=== PATIENT | male | born 1940 | race Caucasian/White ===

== ENCOUNTER 2016-07-22 09:24 | Inpatient (IN) | payer MEDICARE, MEDICAID ==
[~2016-07-22] VITALS: Ht 172.7 cm; Wt 72.6 kg
[2016-07-22] MEDS ORDERED: FURO80TA3 PO (09:56)
[2016-07-22] MEDS ORDERED: ALBUTEROL/IPRATROPIUM 2.5MG/0.5MG, 3 ML ONE (09:56)
[2016-07-22] MEDS ORDERED: [UNRECOGNIZED DRUG - CODE] PO (09:56)
[2016-07-22] MEDS ORDERED: ACET-1757 PO (09:56)
[2016-07-22] MEDS ORDERED: RANI150T4 PO (09:56)
[2016-07-22] MEDS ORDERED: CYAN25009 PO (09:56)
[2016-07-22] MEDS ORDERED: DOCU100C8 PO (09:56)
[2016-07-22] MEDS ORDERED: MULT-6 PO (09:56)
[2016-07-22] MEDS ORDERED: POTA20TA89 PO (09:56)
[2016-07-22] MEDS ORDERED: SODIUM CHLORIDE FLUSH 10ML SYR IVF ONE (10:00)
[2016-07-22] MEDS ORDERED: LIDOCAINE 1%, 20ML ONE (10:11)
[2016-07-22] MEDS ORDERED: SODIUM BICARBONATE 4.2%, 5ML ONE (10:11)
[2016-07-22 10:22] LABS: ASPARTATE AMINO TRANSFERASE 35 U/L (15-37); BLOOD UREA NITROGEN 22 mg/dL (7-18)
[2016-07-22 10:27] LABS: IS PT STATUS REG ER OR PRE ER? YES
[2016-07-22] MEDS ORDERED: ALBUTEROL/IPRATROPIUM 2.5MG/0.5MG, 3 ML NPPB ONE (10:30)
[2016-07-22 10:31] LABS: HEMOGLOBIN 15.4 g/dL (13.7-18.0)
[2016-07-22 10:36] LABS: ANISOCYTOSIS 1+
[2016-07-22 10:37] LABS: LARGE PLATELETS 1+
[2016-07-22] MEDS ORDERED: FUROSEMIDE 20 MG/2 ML IVPush STA (12:50)
[2016-07-22] MEDS ORDERED: FUROSEMIDE 40 MG/4 ML ONE (13:15)
[2016-07-22] MEDS ORDERED: FUROSEMIDE 20 MG/2 ML IVPush ONE (13:56)
[2016-07-22 15:23] VITALS: BP 90/51
[2016-07-22] MEDS ORDERED: CARVEDILOL 3.125 MG TABLET PO SCH (18:00)
[2016-07-22] MEDS ORDERED: MAGNESIUM SULFATE PMX 2GM/50ML 50 ML IV ONE (18:30)
[2016-07-22 20:14] VITALS: BP 87/42
[2016-07-22] MEDS: SODIUM CHLORIDE FLUSH 10ML SYR IVF SCH (20:37)
[2016-07-22] MEDS ORDERED: GLUCOSAMINE PO SCH (21:00)
[2016-07-22] MEDS ORDERED: CHONDROITIN PO SCH (21:00)
[2016-07-23 00:41] VITALS: BP 101/65
[2016-07-23 05:32] LABS: BLOOD UREA NITROGEN 20 mg/dL (7-18)
[2016-07-23] MEDS: CARVEDILOL 3.125 MG TABLET PO SCH ×2 (06:00→18:00)
[2016-07-23 06:54] VITALS: BP 105/63
[2016-07-23] MEDS: ASPIRIN 81 MG TABLET EC PO SCH (07:25)
[2016-07-23] MEDS: POTASSIUM CHLORIDE 20 MEQ TAB.ER.PRT PO SCH (08:49)
[2016-07-23] MEDS: DOCUSATE 100 MG CAPSULE PO SCH (08:49)
[2016-07-23] MEDS: MULTIVITAMIN 1 TABLET PO SCH (08:49)
[2016-07-23] MEDS: CYANOCOBALAMIN 1,000 MCG TABLET PO SCH (08:49)
[2016-07-23] MEDS: FAMOTIDINE 20 MG TABLET PO SCH (08:49)
[2016-07-23] MEDS: SODIUM CHLORIDE FLUSH 10ML SYR IVF SCH ×2 (08:51→20:00)
[2016-07-23] MEDS ORDERED: DIPHTHERIA-TETANUS ADULT 0.5ML IM-VACC ONE (09:00)
[2016-07-23 14:25] VITALS: BP 85/51
[2016-07-23 19:30] VITALS: BP 98/60
[2016-07-24 03:22] VITALS: BP 111/62
[2016-07-24] MEDS: CARVEDILOL 3.125 MG TABLET PO SCH ×2 (05:48→18:00)
[2016-07-24 05:53] LABS: BLOOD UREA NITROGEN 25 mg/dL (7-18)
[2016-07-24] MEDS: ASPIRIN 81 MG TABLET EC PO SCH (06:03)
[2016-07-24 06:04] LABS: HEMOGLOBIN 14.1 g/dL (13.7-18.0)
[2016-07-24 07:26] VITALS: BP 109/64
[2016-07-24] MEDS: SODIUM CHLORIDE FLUSH 10ML SYR IVF SCH ×2 (09:00→21:45)
[2016-07-24] MEDS: MULTIVITAMIN 1 TABLET PO SCH (09:18)
[2016-07-24] MEDS: DOCUSATE 100 MG CAPSULE PO SCH (09:18)
[2016-07-24] MEDS: FAMOTIDINE 20 MG TABLET PO SCH (09:18)
[2016-07-24] MEDS: CYANOCOBALAMIN 1,000 MCG TABLET PO SCH (09:18)
[2016-07-24] MEDS: POTASSIUM CHLORIDE 20 MEQ TAB.ER.PRT PO SCH (09:18)
[2016-07-24] MEDS ORDERED: FUROSEMIDE 40 MG/4 ML IV ONE (13:00)
[2016-07-24 13:24] VITALS: BP 114/58
[2016-07-24 19:04] VITALS: BP 99/36
[2016-07-24 23:58] VITALS: BP 112/58
[2016-07-25 02:42] VITALS: BP 98/47
[2016-07-25] MEDS: CARVEDILOL 3.125 MG TABLET PO SCH ×2 (04:35→17:55)
[2016-07-25] MEDS: ASPIRIN 81 MG TABLET EC PO SCH (05:22)
[2016-07-25 05:25] LABS: BLOOD UREA NITROGEN 26 mg/dL (7-18)
[2016-07-25 05:29] LABS: HEMOGLOBIN 13.8 g/dL (13.7-18.0)
[2016-07-25 07:05] VITALS: BP 92/54
[2016-07-25] MEDS ORDERED: FUROSEMIDE 40 MG TABLET PO SCH (09:00)
[2016-07-25] MEDS: SODIUM CHLORIDE FLUSH 10ML SYR IVF SCH (09:01)
[2016-07-25] MEDS: DOCUSATE 100 MG CAPSULE PO SCH (09:02)
[2016-07-25] MEDS: MULTIVITAMIN 1 TABLET PO SCH (09:02)
[2016-07-25] MEDS: FAMOTIDINE 20 MG TABLET PO SCH (09:02)
[2016-07-25] MEDS: CYANOCOBALAMIN 1,000 MCG TABLET PO SCH (09:02)
[2016-07-25] MEDS: POTASSIUM CHLORIDE 20 MEQ TAB.ER.PRT PO SCH (09:02)
[2016-07-25] MEDS ORDERED: CARV3.1212 PO (11:03)
[2016-07-25 14:47] VITALS: BP 83/45
== END 2016-07-25 18:00 | disposition home or self-care (01) | DRG 291 ==
LOC: ED 10:06 → EDIP 12:33 → 4EST 13:52
PROVIDERS: ADMIT Student in an Organized Health Care Education/Training Program; ATTEND Student in an Organized Health Care Education/Training Program
PROC: 0W9B3ZZ Drainage of Left Pleural Cavity, Percutaneous Approach (ICD-10-PCS; principal; 2016-07-22)
DX: I50.23 Acute on chronic systolic (congestive) heart failure (principal); J96.01 Acute respiratory failure with hypoxia; J90 Pleural effusion, not elsewhere classified; D69.6 Thrombocytopenia, unspecified; I48.0 Paroxysmal atrial fibrillation; Z66 Do not resuscitate; E88.09 Other disorders of plasma-protein metabolism, not elsewhere classified; I48.2 Chronic atrial fibrillation; Z95.2 Presence of prosthetic heart valve
CPT/HCPCS: 32555; 36415; 71010; 80048; 80053; 81001; 82040; 82150; 82247; 82248; 82945; 83605; 83615; 83735; 83880; 83986; 84484; 85025; 87040; 87070; 87205; 89051; 90714; 93005; 93306; 94640; J1940; J3490; J7620; J3475

== ENCOUNTER 2016-08-03 10:01 | Inpatient (IN) | payer MEDICARE, MEDICAID ==
[~2016-08-03] VITALS: Ht 172.7 cm; Wt 72.2 kg
[~2016-08-03 10:01] MED LIST: ACET-1757 PO; CARV3.1212 PO; CYAN25009 PO; DOCU100C8 PO; FURO80TA3 PO; MULT-6 PO; POTA20TA89 PO; RANI150T4 PO; [UNRECOGNIZED DRUG - CODE] PO
[2016-08-03] MEDS ORDERED: SODIUM CHLORIDE FLUSH 10ML SYR IVF ONE (10:30)
[2016-08-03] MEDS ORDERED: MICO71PO4 TP (10:51)
[2016-08-03] MEDS ORDERED: CHLO1LIQ PO (10:51)
[2016-08-03 11:41] LABS: ASPARTATE AMINO TRANSFERASE 37 U/L (15-37); BLOOD UREA NITROGEN 26 mg/dL (7-18)
[2016-08-03 11:47] LABS: IS PT STATUS REG ER OR PRE ER? YES
[2016-08-03] MEDS ORDERED: ACETAMINOPHEN 325 MG TABLET PO PRN (13:00)
[2016-08-03] MEDS ORDERED: SODIUM CHLORIDE FLUSH 10ML SYR IVF PRN (13:00)
[2016-08-03] MEDS ORDERED: ONDANSETRON 2MG/ML, 2ML IVP PRN (13:00)
[2016-08-03 13:27] VITALS: BP 101/63
[2016-08-03] MEDS: FUROSEMIDE 40 MG/4 ML IV SCH (14:39)
[2016-08-03] MEDS: ENOXAPARIN 40 MG/0.4 ML SQ SCH (14:40)
[2016-08-03 16:51] VITALS: BP 101/63
[2016-08-03] MEDS: CARVEDILOL 3.125 MG TABLET PO SCH (17:48)
[2016-08-03] MEDS ORDERED: CARVEDILOL 3.125 MG TABLET PO SCH (18:00)
[2016-08-03 20:35] VITALS: BP 103/59
[2016-08-03] MEDS: FAMOTIDINE 20 MG/2 ML IV SCH (21:10)
[2016-08-04 02:25] VITALS: BP 90/60
[2016-08-04] MEDS: CARVEDILOL 3.125 MG TABLET PO SCH (05:11)
[2016-08-04 06:38] LABS: BLOOD UREA NITROGEN 25 mg/dL (7-18)
[2016-08-04 06:58] VITALS: BP 96/64
[2016-08-04] MEDS: FAMOTIDINE 20 MG/2 ML IV SCH ×2 (09:34→20:33)
[2016-08-04] MEDS: FUROSEMIDE 40 MG/4 ML IV SCH ×2 (09:34→17:40)
[2016-08-04] MEDS: POTASSIUM CHLORIDE 20 MEQ TAB.ER.PRT PO SCH (09:40)
[2016-08-04] MEDS: DOCUSATE 100 MG CAPSULE PO SCH (09:40)
[2016-08-04] MEDS: CYANOCOBALAMIN 1,000 MCG TABLET PO SCH (09:40)
[2016-08-04] MEDS: MULTIVITAMIN 1 TABLET PO SCH (09:40)
[2016-08-04] MEDS: ENOXAPARIN 40 MG/0.4 ML SQ SCH (12:59)
[2016-08-04 13:48] VITALS: BP 100/66
[2016-08-04 20:50] VITALS: BP 113/71
[2016-08-05 02:35] VITALS: BP 104/61
[2016-08-05] MEDS: FUROSEMIDE 40 MG/4 ML IV SCH ×2 (07:41→17:22)
[2016-08-05] MEDS: POTASSIUM CHLORIDE 20 MEQ TAB.ER.PRT PO SCH (08:29)
[2016-08-05] MEDS: FAMOTIDINE 20 MG/2 ML IV SCH ×2 (08:29→19:59)
[2016-08-05] MEDS: MULTIVITAMIN 1 TABLET PO SCH (08:29)
[2016-08-05] MEDS: CYANOCOBALAMIN 1,000 MCG TABLET PO SCH (08:29)
[2016-08-05] MEDS: DOCUSATE 100 MG CAPSULE PO SCH (08:29)
[2016-08-05 08:50] VITALS: BP 106/66
[2016-08-05] MEDS: ENOXAPARIN 40 MG/0.4 ML SQ SCH (13:46)
[2016-08-05 14:40] VITALS: BP 103/56
[2016-08-05 18:30] VITALS: BP 95/61
[2016-08-06 00:37] VITALS: BP 107/66
[2016-08-06 08:00] VITALS: BP 104/70
[2016-08-06] MEDS: FUROSEMIDE 40 MG/4 ML IV SCH ×3 (11:16→18:15)
[2016-08-06] MEDS: DOCUSATE 100 MG CAPSULE PO SCH (11:17)
[2016-08-06] MEDS: CYANOCOBALAMIN 1,000 MCG TABLET PO SCH (11:17)
[2016-08-06] MEDS: FAMOTIDINE 20 MG/2 ML IV SCH ×2 (11:17→20:38)
[2016-08-06] MEDS: MULTIVITAMIN 1 TABLET PO SCH (11:17)
[2016-08-06] MEDS: POTASSIUM CHLORIDE 20 MEQ TAB.ER.PRT PO SCH (11:17)
[2016-08-06] MEDS: ENOXAPARIN 40 MG/0.4 ML SQ SCH (13:26)
[2016-08-06 14:29] VITALS: BP 94/59
[2016-08-06 20:15] VITALS: BP 97/53
[2016-08-07 01:12] VITALS: BP 91/50
[2016-08-07 05:47] LABS: BLOOD UREA NITROGEN 28 mg/dL (7-18)
[2016-08-07] MEDS: FUROSEMIDE 40 MG/4 ML IV SCH ×2 (07:30→16:27)
[2016-08-07 08:13] VITALS: BP 94/57
[2016-08-07] MEDS: CYANOCOBALAMIN 1,000 MCG TABLET PO SCH (09:27)
[2016-08-07] MEDS: MULTIVITAMIN 1 TABLET PO SCH (09:27)
[2016-08-07] MEDS: POTASSIUM CHLORIDE 20 MEQ TAB.ER.PRT PO SCH (09:28)
[2016-08-07] MEDS: FAMOTIDINE 20 MG/2 ML IV SCH (09:28)
[2016-08-07] MEDS: DOCUSATE 100 MG CAPSULE PO SCH (09:30)
[2016-08-07] MEDS: ENOXAPARIN 40 MG/0.4 ML SQ SCH (12:43)
[2016-08-07 14:29] VITALS: BP 105/64
== END 2016-08-07 17:30 | disposition home or self-care (01) | DRG 291 ==
LOC: ED 12:30 → EDIP 12:39 → 4EST 13:15 → 3NW 08-06 17:17
DX: I11.0 Hypertensive heart disease with heart failure (principal); J96.01 Acute respiratory failure with hypoxia; F72 Severe intellectual disabilities; I50.43 Acute on chronic combined systolic (congestive) and diastolic (congestive) heart failure; R41.82 Altered mental status, unspecified; D69.6 Thrombocytopenia, unspecified; G80.9 Cerebral palsy, unspecified; I07.1 Rheumatic tricuspid insufficiency; I27.2 Other secondary pulmonary hypertension; I48.0 Paroxysmal atrial fibrillation; I48.2 Chronic atrial fibrillation; I49.5 Sick sinus syndrome; Z66 Do not resuscitate; Z95.2 Presence of prosthetic heart valve
CPT/HCPCS: 36415; 70450; 71010; 80048; 80053; 81001; 82140; 83605; 83735; 83880; 84484; 85025; 85610; 85730; 87040; 93005; J1650; J1940; S0028

== ENCOUNTER 2016-11-11 16:36 | Inpatient (IN) | payer MEDICARE, MEDICAID ==
[~2016-11-11] VITALS: Ht 172.7 cm; Wt 67.2 kg
[~2016-11-11 16:36] MED LIST changes: +CHLO1LIQ PO; +DOCU100C33 PO; -DOCU100C8 PO; +MICO71PO4 TP
[2016-11-11] MEDS ORDERED: SODIUM CHLORIDE FLUSH 10ML SYR IVF ONE (17:00)
[2016-11-11 17:57] LABS: ASPARTATE AMINO TRANSFERASE 34 U/L (15-37); BLOOD UREA NITROGEN 26 mg/dL (7-18)
[2016-11-11 18:03] LABS: IS PT STATUS REG ER OR PRE ER? YES
[2016-11-11] MEDS ORDERED: COD28PAS TP (18:07)
[2016-11-11] MEDS ORDERED: FURO80TA3 PO (18:08)
[2016-11-11 18:12] LABS: HEMATOCRIT 40.2 % (39.2-51.8); HEMOGLOBIN 13.2 g/dL (13.7-18.0); WHITE BLOOD COUNT 5.3 x10^3/uL (3.4-10)
[2016-11-11 18:57] LABS: ANISOCYTOSIS 1+
[2016-11-11] MEDS ORDERED: FUROSEMIDE 40 MG/4 ML IV ONE (19:00)
[2016-11-11] MEDS ORDERED: FUROSEMIDE 40 MG/4 ML ONE (19:09)
[2016-11-11] MEDS ORDERED: ACETAMINOPHEN 325 MG TABLET PO PRN (19:30)
[2016-11-11] MEDS ORDERED: DOCUSATE 100 MG CAPSULE PO PRN (19:30)
[2016-11-11] MEDS ORDERED: POLYETHYLENE GLYCOL 17 GM PACKET PO PRN (19:30)
[2016-11-11] MEDS ORDERED: ONDANSETRON 2MG/ML, 2ML IVPush PRN (19:30)
[2016-11-11] MEDS ORDERED: morphine SULFATE 10 MG/ML, 1ML IVPush PRN (19:30)
[2016-11-11 21:00] VITALS: BP 126/75
[2016-11-11] MEDS: SODIUM CHLORIDE FLUSH 10ML SYR IVF SCH (21:20)
[2016-11-11] MEDS: ENOXAPARIN 40 MG/0.4 ML SQ SCH (21:20)
[2016-11-12 02:00] VITALS: BP 127/65
[2016-11-12 05:25] LABS: BLOOD UREA NITROGEN 25 mg/dL (7-18)
[2016-11-12 08:06] VITALS: BP 101/55
[2016-11-12] MEDS: DOCUSATE 100 MG CAPSULE PO SCH (08:51)
[2016-11-12] MEDS: POTASSIUM CHLORIDE 20 MEQ TAB.ER.PRT PO SCH (08:52)
[2016-11-12] MEDS: FAMOTIDINE 20 MG TABLET PO SCH (08:52)
[2016-11-12] MEDS: DIAPER RASH/ZINC OXIDE PASTE 40%, 56GM TP SCH (09:00)
[2016-11-12] MEDS: CHLORHEXIDINE MOUTHWASH 15 ML UDC PO SCH (09:20)
[2016-11-12] MEDS: FUROSEMIDE 40 MG/4 ML IV SCH ×2 (09:20→16:20)
[2016-11-12] MEDS: SODIUM CHLORIDE FLUSH 10ML SYR IVF SCH ×2 (09:20→20:19)
[2016-11-12] MEDS ORDERED: MAGNESIUM CHLORIDE 64 MG TABLET.DR PO SCH (10:00)
[2016-11-12] MEDS ORDERED: MAGNESIUM SULFATE PMX 2GM/50ML 50 ML IV ONE (11:00)
[2016-11-12 12:28] VITALS: BP 95/52
[2016-11-12] MEDS: AcetaZOLAMIDE INJ 500 MG IVPush SCH (12:40)
[2016-11-12] MEDS ORDERED: ALBUTEROL/IPRATROPIUM 2.5MG/0.5MG, 3 ML NPPB PRN (13:00)
[2016-11-12 16:15] VITALS: BP 113/60
[2016-11-12 18:29] VITALS: BP 103/58
[2016-11-12] MEDS: ENOXAPARIN 40 MG/0.4 ML SQ SCH (20:19)
[2016-11-13 01:16] VITALS: BP 128/62
[2016-11-13 05:47] LABS: BLOOD UREA NITROGEN 27 mg/dL (7-18)
[2016-11-13] MEDS: FUROSEMIDE 40 MG/4 ML IV SCH ×2 (07:30→16:44)
[2016-11-13 08:32] VITALS: BP 92/53
[2016-11-13] MEDS: CHLORHEXIDINE MOUTHWASH 15 ML UDC PO SCH (09:00)
[2016-11-13] MEDS: DIAPER RASH/ZINC OXIDE PASTE 40%, 56GM TP SCH (09:34)
[2016-11-13] MEDS: SODIUM CHLORIDE FLUSH 10ML SYR IVF SCH ×2 (09:37→22:32)
[2016-11-13] MEDS ORDERED: POTASSIUM CHLORIDE 40 MEQ in SODIUM CHLORIDE 0.9% 500 ML IV ONE (12:00)
[2016-11-13] MEDS: AcetaZOLAMIDE INJ 500 MG IVPush SCH (12:09)
[2016-11-13] MEDS: POTASSIUM CHLORIDE 20 MEQ TAB.ER.PRT PO SCH (13:25)
[2016-11-13] MEDS: DOCUSATE 100 MG CAPSULE PO SCH (13:25)
[2016-11-13] MEDS: FAMOTIDINE 20 MG TABLET PO SCH (13:25)
[2016-11-13 14:22] VITALS: BP 93/59
[2016-11-13 20:15] VITALS: BP 128/64
[2016-11-13] MEDS: ENOXAPARIN 40 MG/0.4 ML SQ SCH (22:32)
[2016-11-14] MEDS ORDERED: FUROSEMIDE 20 MG/2 ML IV ONE
[2016-11-14 02:19] VITALS: BP 116/69
[2016-11-14 03:34] LABS: ABG COLLECTION SITE RIGHT RADIAL; COLLATERAL CIRCULATION TESTING NORMAL
[2016-11-14 03:49] LABS: HEMATOCRIT 44.3 % (39.2-51.8); HEMOGLOBIN 13.8 g/dL (13.7-18.0); WHITE BLOOD COUNT 7.2 x10^3/uL (3.4-10)
[2016-11-14] MEDS: CEFTRIAXONE PMX 1GM/50ML 50 ML IV SCH (04:52)
[2016-11-14 05:51] VITALS: BP 102/68
[2016-11-14 07:08] LABS: ABG COLLECTION SITE RIGHT RADIAL
[2016-11-14 07:09] LABS: COLLATERAL CIRCULATION TESTING NORMAL
[2016-11-14] MEDS: POTASSIUM CHLORIDE 20 MEQ TAB.ER.PRT PO SCH (09:00)
[2016-11-14] MEDS: DOCUSATE 100 MG CAPSULE PO SCH (09:00)
[2016-11-14] MEDS: FAMOTIDINE 20 MG TABLET PO SCH (09:00)
[2016-11-14] MEDS ORDERED: POTASSIUM CHLORIDE 20 MEQ TAB.ER.PRT PO SCH (10:00)
[2016-11-14] MEDS: SODIUM CHLORIDE FLUSH 10ML SYR IVF SCH ×2 (11:08→21:00)
[2016-11-14] MEDS: CHLORHEXIDINE MOUTHWASH 15 ML UDC PO SCH (11:10)
[2016-11-14] MEDS: DIAPER RASH/ZINC OXIDE PASTE 40%, 56GM TP SCH (11:11)
[2016-11-14] MEDS ORDERED: LIDOCAINE 1%, 20ML ONE (11:29)
[2016-11-14] MEDS ORDERED: POTASSIUM CHLORIDE 40 MEQ in SODIUM CHLORIDE 0.9% 500 ML IV ONE (13:00)
[2016-11-14] MEDS: FAMOTIDINE 20 MG/2 ML IVPush SCH (13:25)
[2016-11-14] MEDS ORDERED: FUROSEMIDE 20 MG/2 ML ONE (13:38)
[2016-11-14] MEDS: FUROSEMIDE 40 MG/4 ML IV SCH (13:40)
[2016-11-14] MEDS ORDERED: FUROSEMIDE 40 MG/4 ML IV SCH (17:00)
[2016-11-14] MEDS ORDERED: POTASSIUM CHLORIDE 20 MEQ in SODIUM CHLORIDE 0.9% 250 ML IV ONE (18:30)
[2016-11-15 04:00] VITALS: BP 106/48
[2016-11-15] MEDS: CEFTRIAXONE PMX 1GM/50ML 50 ML IV SCH (04:24)
[2016-11-15 05:37] LABS: HEMATOCRIT 38.7 % (39.2-51.8); HEMOGLOBIN 12.6 g/dL (13.7-18.0)
[2016-11-15 05:48] LABS: ASPARTATE AMINO TRANSFERASE 27 U/L (15-37); BLOOD UREA NITROGEN 28 mg/dL (7-18)
[2016-11-15] MEDS: FAMOTIDINE 20 MG/2 ML IVPush SCH (09:00)
[2016-11-15] MEDS ORDERED: LIDOCAINE 1%, 20ML ONE (09:29)
[2016-11-15] MEDS ORDERED: MIDAZOLAM 1 MG/ML, 5ML ONE (09:52)
[2016-11-15] MEDS ORDERED: FENTANYL PF 100 MCG/2ML ONE (09:52)
[2016-11-15] MEDS ORDERED: MIDAZOLAM 1 MG/ML, 5ML IVPush ONE (10:00)
[2016-11-15] MEDS ORDERED: FENTANYL PF 100 MCG/2ML IVPush ONE (10:00)
[2016-11-15] MEDS: SODIUM CHLORIDE FLUSH 10ML SYR IVF SCH ×2 (12:28→20:58)
[2016-11-15] MEDS: FUROSEMIDE 40 MG/4 ML IV SCH ×2 (12:28→17:23)
[2016-11-15] MEDS: SULFACETAMIDE OPHTH 10%, 5ML EACHEYE SCH ×4 (12:29→20:58)
[2016-11-15] MEDS: PANTOPRAZOLE 40 MG IV IVPush SCH ×2 (12:29→20:57)
[2016-11-15] MEDS: DOCUSATE 100 MG CAPSULE PO SCH (12:29)
[2016-11-15] MEDS: DIAPER RASH/ZINC OXIDE PASTE 40%, 56GM TP SCH (13:40)
[2016-11-15] MEDS: CHLORHEXIDINE MOUTHWASH 15 ML UDC PO SCH (13:40)
[2016-11-16] MEDS: SULFACETAMIDE OPHTH 10%, 5ML EACHEYE SCH ×6 (01:28→22:01)
[2016-11-16] MEDS: CEFTRIAXONE PMX 1GM/50ML 50 ML IV SCH (04:09)
[2016-11-16 05:00] VITALS: BP 104/42
[2016-11-16] MEDS: FUROSEMIDE 40 MG/4 ML IV SCH ×2 (09:34→22:00)
[2016-11-16] MEDS: DIAPER RASH/ZINC OXIDE PASTE 40%, 56GM TP SCH (09:34)
[2016-11-16] MEDS: SODIUM CHLORIDE FLUSH 10ML SYR IVF SCH ×2 (09:35→22:00)
[2016-11-16] MEDS: CHLORHEXIDINE MOUTHWASH 15 ML UDC PO SCH (09:38)
[2016-11-16 16:29] VITALS: BP 96/63
[2016-11-16 17:02] VITALS: BP 91/52
[2016-11-16 19:52] VITALS: BP 92/53
[2016-11-16] MEDS: DOCUSATE 100 MG CAPSULE PO SCH (22:00)
[2016-11-17 02:40] VITALS: BP 91/53
[2016-11-17] MEDS: SULFACETAMIDE OPHTH 10%, 5ML EACHEYE SCH ×6 (04:07→21:19)
[2016-11-17 08:03] VITALS: BP 97/61
[2016-11-17 09:00] VITALS: BP 85/54
[2016-11-17] MEDS: DIAPER RASH/ZINC OXIDE PASTE 40%, 56GM TP SCH (09:00)
[2016-11-17] MEDS: CHLORHEXIDINE MOUTHWASH 15 ML UDC PO SCH (09:00)
[2016-11-17] MEDS: FUROSEMIDE 40 MG/4 ML IV SCH ×2 (09:00→17:46)
[2016-11-17] MEDS: DOCUSATE 100 MG CAPSULE PO SCH (10:10)
[2016-11-17] MEDS: SODIUM CHLORIDE FLUSH 10ML SYR IVF SCH ×2 (10:10→21:18)
[2016-11-17 15:00] VITALS: BP 103/65
[2016-11-17 17:45] VITALS: BP 103/65
[2016-11-17 18:48] VITALS: BP 103/66
[2016-11-17] MEDS ORDERED: POTASSIUM CHLORIDE 10% 40 MEQ/30 ML UDC PO SCH ×2 (21:00)
[2016-11-17] MEDS: POTASSIUM CHLORIDE 20 MEQ PACKET PO SCH (21:18)
[2016-11-18 00:01] VITALS: BP 98/60
[2016-11-18] MEDS: SULFACETAMIDE OPHTH 10%, 5ML EACHEYE SCH ×6 (01:53→21:09)
[2016-11-18 05:54] LABS: HEMATOCRIT 40.2 % (39.2-51.8); HEMOGLOBIN 13.2 g/dL (13.7-18.0); WHITE BLOOD COUNT 4.2 x10^3/uL (3.4-10)
[2016-11-18 06:01] LABS: BLOOD UREA NITROGEN 28 mg/dL (7-18)
[2016-11-18 06:43] VITALS: BP 102/68
[2016-11-18 07:32] LABS: DIFF TOTAL CELLS COUNTED 100 CELL DIFF
[2016-11-18 07:41] LABS: ANISOCYTOSIS 1+; VERIFY COUNTS? YES
[2016-11-18] MEDS: SODIUM CHLORIDE FLUSH 10ML SYR IVF SCH ×2 (08:07→21:08)
[2016-11-18] MEDS: FUROSEMIDE 40 MG/4 ML IV SCH (08:07)
[2016-11-18] MEDS: DOCUSATE 100 MG CAPSULE PO SCH (08:08)
[2016-11-18] MEDS: CHLORHEXIDINE MOUTHWASH 15 ML UDC PO SCH (08:08)
[2016-11-18] MEDS: POTASSIUM CHLORIDE 20 MEQ PACKET PO SCH (08:08)
[2016-11-18] MEDS: DIAPER RASH/ZINC OXIDE PASTE 40%, 56GM TP SCH (08:09)
[2016-11-18] MEDS ORDERED: INSTRUCTION SEE COMMENTS XX PRN (10:30)
[2016-11-18] MEDS ORDERED: DEXTROSE 5% 500 ML IV SCH ×2 (10:30→13:00)
[2016-11-18] MEDS: DEXTROSE 5% 1,000 ML IV SCH ×2 (14:00→21:09)
[2016-11-18 14:55] VITALS: BP 90/59
[2016-11-18 18:11] VITALS: BP 93/60
[2016-11-19 00:02] VITALS: BP 104/70
[2016-11-19] MEDS: SULFACETAMIDE OPHTH 10%, 5ML EACHEYE SCH ×6 (01:30→20:44)
[2016-11-19 06:09] LABS: BLOOD UREA NITROGEN 27 mg/dL (7-18)
[2016-11-19 08:30] VITALS: BP 104/65
[2016-11-19] MEDS ORDERED: POTASSIUM CHLORIDE 20 MEQ TAB.ER.PRT PO SCH (09:00)
[2016-11-19] MEDS: SODIUM CHLORIDE FLUSH 10ML SYR IVF SCH ×2 (09:49→20:42)
[2016-11-19] MEDS: DOCUSATE 100 MG CAPSULE PO SCH (09:49)
[2016-11-19] MEDS: POTASSIUM CHLORIDE 20 MEQ TAB.ER.PRT PO SCH (09:49)
[2016-11-19] MEDS: FUROSEMIDE 40 MG TABLET PO SCH (09:50)
[2016-11-19] MEDS: CHLORHEXIDINE MOUTHWASH 15 ML UDC PO SCH (09:51)
[2016-11-19] MEDS: DIAPER RASH/ZINC OXIDE PASTE 40%, 56GM TP SCH (09:51)
[2016-11-19] MEDS: DEXTROSE 5% 1,000 ML IV SCH ×2 (10:30→22:59)
[2016-11-19 13:51] VITALS: BP 102/67
[2016-11-19 19:56] VITALS: BP 98/68
[2016-11-20] MEDS: SULFACETAMIDE OPHTH 10%, 5ML EACHEYE SCH ×6 (01:30→21:28)
[2016-11-20 01:41] VITALS: BP 116/61
[2016-11-20 05:00] LABS: BLOOD UREA NITROGEN 27 mg/dL (7-18)
[2016-11-20 05:05] LABS: HEMATOCRIT 39.7 % (39.2-51.8); HEMOGLOBIN 12.9 g/dL (13.7-18.0); WHITE BLOOD COUNT 4.7 x10^3/uL (3.4-10)
[2016-11-20] MEDS: DOCUSATE 100 MG CAPSULE PO SCH (08:00)
[2016-11-20] MEDS: POTASSIUM CHLORIDE 20 MEQ TAB.ER.PRT PO SCH (08:00)
[2016-11-20] MEDS: FUROSEMIDE 40 MG TABLET PO SCH (08:00)
[2016-11-20] MEDS: CHLORHEXIDINE MOUTHWASH 15 ML UDC PO SCH (08:01)
[2016-11-20] MEDS: SODIUM CHLORIDE FLUSH 10ML SYR IVF SCH ×2 (08:01→21:28)
[2016-11-20] MEDS: DIAPER RASH/ZINC OXIDE PASTE 40%, 56GM TP SCH (08:02)
[2016-11-20 08:30] VITALS: BP 101/68
[2016-11-20] MEDS ORDERED: FUROSEMIDE 40 MG/4 ML IV ONE (10:58)
[2016-11-20] MEDS: DEXTROSE 5% 1,000 ML IV SCH (12:00)
[2016-11-20 14:30] VITALS: BP 101/60
[2016-11-20] MEDS: FUROSEMIDE 40 MG/4 ML IV SCH (18:30)
[2016-11-20 20:18] VITALS: BP 100/63
[2016-11-20 20:34] VITALS: BP 100/61
[2016-11-21] MEDS: SULFACETAMIDE OPHTH 10%, 5ML EACHEYE SCH ×6 (01:30→23:40)
[2016-11-21 01:58] VITALS: BP 102/58
[2016-11-21] MEDS: DEXTROSE 5% 1,000 ML IV SCH ×2 (02:09→16:21)
[2016-11-21 06:30] VITALS: BP 91/53
[2016-11-21] MEDS: DIAPER RASH/ZINC OXIDE PASTE 40%, 56GM TP SCH (09:00)
[2016-11-21] MEDS: SODIUM CHLORIDE FLUSH 10ML SYR IVF SCH ×2 (09:00→20:10)
[2016-11-21] MEDS: FUROSEMIDE 40 MG/4 ML IV SCH ×2 (09:07→17:33)
[2016-11-21] MEDS: DOCUSATE 100 MG CAPSULE PO SCH (10:40)
[2016-11-21] MEDS: CHLORHEXIDINE MOUTHWASH 15 ML UDC PO SCH (10:41)
[2016-11-21] MEDS: POTASSIUM CHLORIDE 20 MEQ TAB.ER.PRT PO SCH (10:41)
[2016-11-21 12:05] VITALS: BP 92/56
[2016-11-21] MEDS ORDERED: ACETAMINOPHEN 325 MG TABLET PO PRN ×2 (16:00)
[2016-11-21] MEDS ORDERED: ONDANSETRON 2MG/ML, 2ML IVPush PRN ×2 (16:00)
[2016-11-21] MEDS ORDERED: POLYETHYLENE GLYCOL 17 GM PACKET PO PRN (16:00)
[2016-11-21] MEDS ORDERED: INSTRUCTION SEE COMMENTS XX PRN (16:00)
[2016-11-21] MEDS ORDERED: morphine SULFATE 10 MG/ML, 1ML IVPush PRN ×2 (16:00)
[2016-11-21 18:57] VITALS: BP 92/53
[2016-11-21] MEDS ORDERED: SODIUM CHLORIDE FLUSH 10ML SYR IVF SCH (21:00)
[2016-11-22 02:00] VITALS: BP 95/65
[2016-11-22] MEDS: SULFACETAMIDE OPHTH 10%, 5ML EACHEYE SCH ×5 (04:13→23:16)
[2016-11-22] MEDS: DEXTROSE 5% 1,000 ML IV SCH ×2 (06:04→19:50)
[2016-11-22 06:20] LABS: HEMATOCRIT 34.7 % (39.2-51.8); HEMOGLOBIN 11.6 g/dL (13.7-18.0); WHITE BLOOD COUNT 5.5 x10^3/uL (3.4-10)
[2016-11-22 06:30] LABS: BLOOD UREA NITROGEN 24 mg/dL (7-18)
[2016-11-22 06:54] VITALS: BP 92/53
[2016-11-22] MEDS: SODIUM CHLORIDE FLUSH 10ML SYR IVF SCH ×2 (09:00→20:20)
[2016-11-22] MEDS: DIAPER RASH/ZINC OXIDE PASTE 40%, 56GM TP SCH (09:00)
[2016-11-22] MEDS: FUROSEMIDE 40 MG/4 ML IV SCH ×2 (09:27→18:57)
[2016-11-22] MEDS: CHLORHEXIDINE MOUTHWASH 15 ML UDC PO SCH (09:28)
[2016-11-22] MEDS: DOCUSATE 100 MG CAPSULE PO SCH (09:28)
[2016-11-22] MEDS: POTASSIUM CHLORIDE 20 MEQ TAB.ER.PRT PO SCH (09:28)
[2016-11-22 10:58] VITALS: BP 99/58
[2016-11-22 14:42] VITALS: BP 89/59
[2016-11-22 18:53] VITALS: BP 93/56
[2016-11-22] MEDS: METOLAZONE 2.5 MG TABLET PO SCH (18:55)
[2016-11-23 02:00] VITALS: BP 85/47
[2016-11-23] MEDS: SULFACETAMIDE OPHTH 10%, 5ML EACHEYE SCH ×4 (02:29→19:59)
[2016-11-23 05:58] LABS: HEMATOCRIT 33.2 % (39.2-51.8); WHITE BLOOD COUNT 4.1 x10^3/uL (3.4-10)
[2016-11-23 06:03] LABS: BLOOD UREA NITROGEN 24 mg/dL (7-18)
[2016-11-23 08:20] VITALS: BP 90/51
[2016-11-23] MEDS: SODIUM CHLORIDE FLUSH 10ML SYR IVF SCH ×2 (09:00→19:59)
[2016-11-23] MEDS: DIAPER RASH/ZINC OXIDE PASTE 40%, 56GM TP SCH (09:00)
[2016-11-23] MEDS: DEXTROSE 5% 1,000 ML IV SCH (09:10)
[2016-11-23] MEDS: FUROSEMIDE 40 MG/4 ML IV SCH ×2 (10:53→19:10)
[2016-11-23] MEDS: METOLAZONE 2.5 MG TABLET PO SCH ×2 (10:53→19:11)
[2016-11-23] MEDS: CHLORHEXIDINE MOUTHWASH 15 ML UDC PO SCH (10:55)
[2016-11-23] MEDS: DOCUSATE 100 MG CAPSULE PO SCH (10:55)
[2016-11-23] MEDS: POTASSIUM CHLORIDE 20 MEQ TAB.ER.PRT PO SCH (10:55)
[2016-11-23 12:35] VITALS: BP 131/76
[2016-11-23 20:00] VITALS: BP 95/58
[2016-11-24] MEDS: SULFACETAMIDE OPHTH 10%, 5ML EACHEYE SCH ×6 (01:02→20:40)
[2016-11-24 02:00] VITALS: BP 98/56
[2016-11-24] MEDS: METOLAZONE 2.5 MG TABLET PO SCH ×2 (07:30→18:00)
[2016-11-24] MEDS: FUROSEMIDE 40 MG/4 ML IV SCH ×2 (07:30→18:00)
[2016-11-24 08:41] VITALS: BP 99/60
[2016-11-24] MEDS: CHLORHEXIDINE MOUTHWASH 15 ML UDC PO SCH (09:00)
[2016-11-24] MEDS: DIAPER RASH/ZINC OXIDE PASTE 40%, 56GM TP SCH (09:00)
[2016-11-24] MEDS: SODIUM CHLORIDE FLUSH 10ML SYR IVF SCH ×2 (09:58→20:40)
[2016-11-24] MEDS: POTASSIUM CHLORIDE 20 MEQ TAB.ER.PRT PO SCH (09:59)
[2016-11-24] MEDS: DOCUSATE 100 MG CAPSULE PO SCH (09:59)
[2016-11-24 14:00] VITALS: BP 96/59
[2016-11-24 19:38] VITALS: BP_SYST 91; BP_SYST 92; BP_DIAS 56; BP_DIAS 86
[2016-11-25] MEDS: SULFACETAMIDE OPHTH 10%, 5ML EACHEYE SCH ×6 (00:35→20:02)
[2016-11-25 00:59] VITALS: BP 96/59
[2016-11-25 05:39] LABS: HEMATOCRIT 35.2 % (39.2-51.8); HEMOGLOBIN 11.9 g/dL (13.7-18.0); WHITE BLOOD COUNT 4.8 x10^3/uL (3.4-10)
[2016-11-25 05:50] LABS: BLOOD UREA NITROGEN 26 mg/dL (7-18)
[2016-11-25 07:23] VITALS: BP 98/62
[2016-11-25] MEDS: DIAPER RASH/ZINC OXIDE PASTE 40%, 56GM TP SCH (09:00)
[2016-11-25] MEDS: METOLAZONE 2.5 MG TABLET PO SCH ×2 (09:17→17:36)
[2016-11-25] MEDS: FUROSEMIDE 40 MG/4 ML IV SCH ×2 (09:18→17:37)
[2016-11-25] MEDS: POTASSIUM CHLORIDE 20 MEQ TAB.ER.PRT PO SCH ×4 (09:18→15:00)
[2016-11-25] MEDS: SODIUM CHLORIDE FLUSH 10ML SYR IVF SCH ×2 (09:18→20:02)
[2016-11-25] MEDS: CHLORHEXIDINE MOUTHWASH 15 ML UDC PO SCH (09:19)
[2016-11-25] MEDS: DOCUSATE 100 MG CAPSULE PO SCH (09:19)
[2016-11-25] MEDS: CEFTRIAXONE PMX 1GM/50ML 50 ML IV SCH (11:30)
[2016-11-25] MEDS ORDERED: CEFTRIAXONE PMX 1GM/50ML 50 ML IV SCH (11:30)
[2016-11-25 12:21] LABS: PATH.CAST-FLAG NOT PRESENT; SPERM-FLAG NOT PRESENT; SRC-FLAG NOT PRESENT; XTAL-FLAG NOT PRESENT; YLC-FLAG NOT PRESENT
[2016-11-25 13:11] VITALS: BP 90/54
[2016-11-25 19:55] VITALS: BP 95/57
[2016-11-26] MEDS: SULFACETAMIDE OPHTH 10%, 5ML EACHEYE SCH ×6 (00:51→20:35)
[2016-11-26 00:54] VITALS: BP 93/57
[2016-11-26 05:33] LABS: BLOOD UREA NITROGEN 27 mg/dL (7-18)
[2016-11-26 05:38] LABS: HEMATOCRIT 37.4 % (39.2-51.8); HEMOGLOBIN 12.5 g/dL (13.7-18.0); WHITE BLOOD COUNT 5.5 x10^3/uL (3.4-10)
[2016-11-26 08:40] VITALS: BP 91/56
[2016-11-26] MEDS: DIAPER RASH/ZINC OXIDE PASTE 40%, 56GM TP SCH (09:00)
[2016-11-26] MEDS: POTASSIUM CHLORIDE 20 MEQ TAB.ER.PRT PO SCH ×2 (10:04→22:01)
[2016-11-26] MEDS: DOCUSATE 100 MG CAPSULE PO SCH (10:04)
[2016-11-26] MEDS: METOLAZONE 2.5 MG TABLET PO SCH ×2 (10:04→16:55)
[2016-11-26] MEDS: FUROSEMIDE 40 MG/4 ML IV SCH ×2 (10:04→16:56)
[2016-11-26] MEDS: CHLORHEXIDINE MOUTHWASH 15 ML UDC PO SCH (10:05)
[2016-11-26] MEDS: SODIUM CHLORIDE FLUSH 10ML SYR IVF SCH ×2 (10:05→22:00)
[2016-11-26] MEDS: CEFTRIAXONE PMX 1GM/50ML 50 ML IV SCH (11:57)
[2016-11-26 14:00] VITALS: BP 105/65
[2016-11-26] MEDS: POLYETHYLENE GLYCOL 17 GM PACKET PO PRN (18:33)
[2016-11-27] MEDS: POTASSIUM CHLORIDE 20 MEQ TAB.ER.PRT PO SCH ×2 (00:28→10:21)
[2016-11-27] MEDS: SULFACETAMIDE OPHTH 10%, 5ML EACHEYE SCH ×6 (00:32→20:35)
[2016-11-27 03:03] VITALS: BP 94/61
[2016-11-27 06:40] LABS: HEMATOCRIT 38.5 % (39.2-51.8); HEMOGLOBIN 12.7 g/dL (13.7-18.0); WHITE BLOOD COUNT 5.4 x10^3/uL (3.4-10)
[2016-11-27 06:41] LABS: BLOOD UREA NITROGEN 30 mg/dL (7-18)
[2016-11-27 07:00] VITALS: BP 95/61
[2016-11-27] MEDS: FUROSEMIDE 40 MG/4 ML IV SCH (07:30)
[2016-11-27] MEDS: METOLAZONE 2.5 MG TABLET PO SCH (07:30)
[2016-11-27] MEDS: DIAPER RASH/ZINC OXIDE PASTE 40%, 56GM TP SCH (09:00)
[2016-11-27] MEDS: SODIUM CHLORIDE FLUSH 10ML SYR IVF SCH ×2 (10:21→22:33)
[2016-11-27] MEDS: DOCUSATE 100 MG CAPSULE PO SCH (10:21)
[2016-11-27] MEDS: CHLORHEXIDINE MOUTHWASH 15 ML UDC PO SCH (10:22)
[2016-11-27 11:42] VITALS: BP 95/56
[2016-11-27] MEDS: CEFTRIAXONE PMX 1GM/50ML 50 ML IV SCH (11:47)
[2016-11-27] MEDS ORDERED: POTASSIUM CHLORIDE 20 MEQ TAB.ER.PRT PO ONE (13:00)
[2016-11-27 13:54] LABS: BLOOD UREA NITROGEN 33 mg/dL (7-18)
[2016-11-27] MEDS ORDERED: INSTRUCTION SEE COMMENTS XX PRN ×2 (16:30→17:00)
[2016-11-27] MEDS ORDERED: morphine SULFATE 10 MG/ML, 1ML IVPush PRN ×2 (16:30→17:00)
[2016-11-27] MEDS ORDERED: ONDANSETRON 2MG/ML, 2ML IVPush PRN ×2 (16:30→17:00)
[2016-11-27] MEDS ORDERED: ACETAMINOPHEN 325 MG TABLET PO PRN ×2 (16:30→17:00)
[2016-11-27 18:45] VITALS: BP 92/65
[2016-11-27] MEDS ORDERED: SODIUM CHLORIDE FLUSH 10ML SYR IVF SCH (21:00)
[2016-11-27] MEDS: POLYETHYLENE GLYCOL 17 GM PACKET PO PRN (22:33)
[2016-11-28] MEDS: SULFACETAMIDE OPHTH 10%, 5ML EACHEYE SCH ×6 (00:35→20:35)
[2016-11-28 01:30] VITALS: BP 95/61
[2016-11-28 08:31] VITALS: BP 103/57
[2016-11-28] MEDS: SODIUM CHLORIDE FLUSH 10ML SYR IVF SCH ×2 (09:00→21:36)
[2016-11-28] MEDS: DOCUSATE 100 MG CAPSULE PO SCH (09:00)
[2016-11-28] MEDS: DIAPER RASH/ZINC OXIDE PASTE 40%, 56GM TP SCH (09:00)
[2016-11-28] MEDS: DOCUSATE 50 MG/5 ML, 10ML UDC NG SCH (10:41)
[2016-11-28] MEDS: CHLORHEXIDINE MOUTHWASH 15 ML UDC PO SCH (10:51)
[2016-11-28] MEDS: CEFTRIAXONE PMX 1GM/50ML 50 ML IV SCH (11:30)
[2016-11-28 12:57] VITALS: BP 96/57
[2016-11-28] MEDS: POTASSIUM CHLORIDE 40 MEQ in SODIUM CHLORIDE 0.9% 500 ML IV SCH ×2 (17:17→21:35)
[2016-11-28 21:33] VITALS: BP 124/56
[2016-11-29] MEDS: SULFACETAMIDE OPHTH 10%, 5ML EACHEYE SCH ×6 (00:35→20:13)
[2016-11-29 02:07] VITALS: BP 96/54
[2016-11-29 06:22] LABS: BLOOD UREA NITROGEN 33 mg/dL (7-18)
[2016-11-29 07:46] VITALS: BP 105/63
[2016-11-29] MEDS ORDERED: BISACODYL 10 MG SUPP PR PRN (09:00)
[2016-11-29] MEDS: CHLORHEXIDINE MOUTHWASH 15 ML UDC PO SCH (09:00)
[2016-11-29] MEDS: DIAPER RASH/ZINC OXIDE PASTE 40%, 56GM TP SCH (09:00)
[2016-11-29] MEDS: POLYETHYLENE GLYCOL 17 GM PACKET PO SCH (11:15)
[2016-11-29] MEDS: SODIUM CHLORIDE FLUSH 10ML SYR IVF SCH ×2 (11:16→20:10)
[2016-11-29] MEDS: CEFTRIAXONE PMX 1GM/50ML 50 ML IV SCH (11:16)
[2016-11-29] MEDS: DOCUSATE 50 MG/5 ML, 10ML UDC NG SCH (11:16)
[2016-11-29 12:30] VITALS: BP 93/61
[2016-11-29 20:00] VITALS: BP 100/53
[2016-11-30] MEDS: SULFACETAMIDE OPHTH 10%, 5ML EACHEYE SCH ×7 (00:35→23:58)
[2016-11-30 02:00] VITALS: BP 96/59
[2016-11-30 06:28] LABS: HEMATOCRIT 37.9 % (39.2-51.8); HEMOGLOBIN 12.4 g/dL (13.7-18.0); WHITE BLOOD COUNT 5.3 x10^3/uL (3.4-10)
[2016-11-30 06:44] LABS: ASPARTATE AMINO TRANSFERASE 40 U/L (15-37); BLOOD UREA NITROGEN 35 mg/dL (7-18)
[2016-11-30 08:27] VITALS: BP 94/63
[2016-11-30] MEDS: CHLORHEXIDINE MOUTHWASH 15 ML UDC PO SCH (09:00)
[2016-11-30] MEDS: DIAPER RASH/ZINC OXIDE PASTE 40%, 56GM TP SCH (09:00)
[2016-11-30] MEDS ORDERED: DEXTROSE 5% 1,000 ML IV SCH (10:00)
[2016-11-30] MEDS: SODIUM CHLORIDE FLUSH 10ML SYR IVF SCH ×2 (10:23→20:51)
[2016-11-30] MEDS: POLYETHYLENE GLYCOL 17 GM PACKET PO SCH (11:31)
[2016-11-30] MEDS: DOCUSATE 50 MG/5 ML, 10ML UDC NG SCH (11:31)
[2016-11-30] MEDS: CEFTRIAXONE PMX 1GM/50ML 50 ML IV SCH (11:48)
[2016-11-30 14:04] VITALS: BP 92/52
[2016-11-30 20:00] VITALS: BP 95/53
[2016-12-01 02:00] VITALS: BP 101/60
[2016-12-01] MEDS: SULFACETAMIDE OPHTH 10%, 5ML EACHEYE SCH ×5 (04:35→22:02)
[2016-12-01 06:55] LABS: HEMATOCRIT 36.5 % (39.2-51.8); WHITE BLOOD COUNT 4.3 x10^3/uL (3.4-10)
[2016-12-01 07:05] LABS: BLOOD UREA NITROGEN 32 mg/dL (7-18)
[2016-12-01 07:09] LABS: ASPARTATE AMINO TRANSFERASE 42 U/L (15-37)
[2016-12-01 07:25] LABS: ANISOCYTOSIS 1+
[2016-12-01 07:27] LABS: LARGE PLATELETS 1+
[2016-12-01 07:46] VITALS: BP 103/59
[2016-12-01] MEDS: DIAPER RASH/ZINC OXIDE PASTE 40%, 56GM TP SCH (09:00)
[2016-12-01] MEDS: CHLORHEXIDINE MOUTHWASH 15 ML UDC PO SCH (10:23)
[2016-12-01] MEDS: SODIUM CHLORIDE FLUSH 10ML SYR IVF SCH ×2 (10:23→22:02)
[2016-12-01] MEDS: POLYETHYLENE GLYCOL 17 GM PACKET PO SCH (10:23)
[2016-12-01] MEDS: DOCUSATE 50 MG/5 ML, 10ML UDC NG SCH (10:28)
[2016-12-01 12:58] VITALS: BP 88/58
[2016-12-01 13:15] VITALS: BP 97/60
[2016-12-01] MEDS: CEFTRIAXONE PMX 1GM/50ML 50 ML IV SCH (13:40)
[2016-12-01 20:00] VITALS: BP 98/53
[2016-12-02] MEDS: SULFACETAMIDE OPHTH 10%, 5ML EACHEYE SCH ×6 (00:35→21:11)
[2016-12-02 01:13] VITALS: BP 96/59
[2016-12-02 08:08] VITALS: BP 102/63
[2016-12-02] MEDS: DIAPER RASH/ZINC OXIDE PASTE 40%, 56GM TP SCH (09:00)
[2016-12-02] MEDS ORDERED: POTASSIUM CHLORIDE 20 MEQ TAB.ER.PRT PO ONE (09:30)
[2016-12-02] MEDS: DOCUSATE 50 MG/5 ML, 10ML UDC NG SCH (10:44)
[2016-12-02] MEDS: CHLORHEXIDINE MOUTHWASH 15 ML UDC PO SCH (10:44)
[2016-12-02] MEDS: SODIUM CHLORIDE FLUSH 10ML SYR IVF SCH ×2 (10:44→21:11)
[2016-12-02] MEDS: POLYETHYLENE GLYCOL 17 GM PACKET PO SCH (10:45)
[2016-12-02] MEDS: FUROSEMIDE 40 MG TABLET PO SCH (10:45)
[2016-12-02 13:56] VITALS: BP 107/63
[2016-12-02] MEDS: CEFTRIAXONE PMX 1GM/50ML 50 ML IV SCH (14:17)
[2016-12-02 20:47] VITALS: BP 105/67
[2016-12-03] MEDS: SULFACETAMIDE OPHTH 10%, 5ML EACHEYE SCH ×6 (01:00→21:40)
[2016-12-03 01:55] VITALS: BP 100/68
[2016-12-03 06:23] LABS: HEMATOCRIT 38.1 % (39.2-51.8); HEMOGLOBIN 12.5 g/dL (13.7-18.0); WHITE BLOOD COUNT 7.1 x10^3/uL (3.4-10)
[2016-12-03 06:26] LABS: BLOOD UREA NITROGEN 34 mg/dL (7-18)
[2016-12-03 08:30] VITALS: BP 101/51
[2016-12-03] MEDS: DIAPER RASH/ZINC OXIDE PASTE 40%, 56GM TP SCH (09:00)
[2016-12-03] MEDS: POLYETHYLENE GLYCOL 17 GM PACKET PO SCH (10:23)
[2016-12-03] MEDS: DOCUSATE 50 MG/5 ML, 10ML UDC NG SCH (10:24)
[2016-12-03] MEDS: FUROSEMIDE 40 MG TABLET PO SCH (10:24)
[2016-12-03] MEDS: CHLORHEXIDINE MOUTHWASH 15 ML UDC PO SCH (10:24)
[2016-12-03] MEDS: SODIUM CHLORIDE FLUSH 10ML SYR IVF SCH ×2 (10:24→21:40)
[2016-12-03 14:22] LABS: BLOOD UREA NITROGEN 35 mg/dL (7-18)
[2016-12-03 14:30] VITALS: BP 103/62
[2016-12-03] MEDS: CEFTRIAXONE PMX 1GM/50ML 50 ML IV SCH (14:43)
[2016-12-03 18:55] VITALS: BP 91/48
[2016-12-04] MEDS: SULFACETAMIDE OPHTH 10%, 5ML EACHEYE SCH ×6 (01:04→20:50)
[2016-12-04 02:00] VITALS: BP 104/63
[2016-12-04 05:56] LABS: BLOOD UREA NITROGEN 33 mg/dL (7-18)
[2016-12-04 07:30] VITALS: BP 90/53
[2016-12-04] MEDS: POLYETHYLENE GLYCOL 17 GM PACKET PO SCH (09:00)
[2016-12-04 13:54] VITALS: BP 101/63
[2016-12-04] MEDS: DIAPER RASH/ZINC OXIDE PASTE 40%, 56GM TP SCH (14:13)
[2016-12-04] MEDS: DOCUSATE 50 MG/5 ML, 10ML UDC NG SCH (14:13)
[2016-12-04] MEDS: SODIUM CHLORIDE FLUSH 10ML SYR IVF SCH ×2 (14:13→20:50)
[2016-12-04] MEDS: FUROSEMIDE 40 MG TABLET PO SCH (14:13)
[2016-12-04] MEDS: CHLORHEXIDINE MOUTHWASH 15 ML UDC PO SCH (14:13)
[2016-12-04] MEDS: CEFTRIAXONE PMX 1GM/50ML 50 ML IV SCH (14:14)
[2016-12-04] MEDS ORDERED: POTASSIUM CHLORIDE 20 MEQ TAB.ER.PRT PO ONE (17:00)
[2016-12-04] MEDS ORDERED: POTASSIUM CHLORIDE 10 MEQ TABLET.ER ONE (18:26)
[2016-12-04 19:18] VITALS: BP 139/79
[2016-12-04] MEDS ORDERED: INSTRUCTION SEE COMMENTS XX PRN (19:30)
[2016-12-04] MEDS ORDERED: ACETAMINOPHEN 325 MG TABLET PO PRN (19:30)
[2016-12-04] MEDS ORDERED: ONDANSETRON 2MG/ML, 2ML IVPush PRN (19:30)
[2016-12-04] MEDS ORDERED: BISACODYL 10 MG SUPP PR PRN (19:30)
[2016-12-05 00:25] VITALS: BP 93/63
[2016-12-05] MEDS: SULFACETAMIDE OPHTH 10%, 5ML EACHEYE SCH ×6 (01:18→21:02)
[2016-12-05 05:45] LABS: ASPARTATE AMINO TRANSFERASE 71 U/L (15-37); BLOOD UREA NITROGEN 32 mg/dL (7-18)
[2016-12-05] MEDS ORDERED: FUROSEMIDE 40 MG TABLET PO SCH ×2 (09:00)
[2016-12-05] MEDS: DOCUSATE 50 MG/5 ML, 10ML UDC NG SCH (09:27)
[2016-12-05] MEDS: SODIUM CHLORIDE FLUSH 10ML SYR IVF SCH ×2 (09:27→21:02)
[2016-12-05] MEDS: POLYETHYLENE GLYCOL 17 GM PACKET PO SCH (09:29)
[2016-12-05] MEDS: CHLORHEXIDINE MOUTHWASH 15 ML UDC PO SCH (09:29)
[2016-12-05] MEDS: DIAPER RASH/ZINC OXIDE PASTE 40%, 56GM TP SCH (09:30)
[2016-12-05 09:35] VITALS: BP 103/60
[2016-12-05 14:26] VITALS: BP 104/51
[2016-12-05 19:00] VITALS: BP_SYST 84; BP_SYST 88; BP_DIAS 51; BP_DIAS 52
[2016-12-06] MEDS: SULFACETAMIDE OPHTH 10%, 5ML EACHEYE SCH ×6 (01:00→22:07)
[2016-12-06 01:25] VITALS: BP 84/49
[2016-12-06 07:46] VITALS: BP 89/48
[2016-12-06] MEDS ORDERED: FUROSEMIDE 40 MG TABLET PO SCH (09:00)
[2016-12-06] MEDS: CHLORHEXIDINE MOUTHWASH 15 ML UDC PO SCH (09:29)
[2016-12-06] MEDS: DOCUSATE 50 MG/5 ML, 10ML UDC NG SCH (09:29)
[2016-12-06] MEDS: DIAPER RASH/ZINC OXIDE PASTE 40%, 56GM TP SCH (09:29)
[2016-12-06] MEDS: POLYETHYLENE GLYCOL 17 GM PACKET PO SCH (09:29)
[2016-12-06] MEDS: ALBUMIN HUMAN 25% 100 ML IV SCH (09:46)
[2016-12-06] MEDS: SODIUM CHLORIDE FLUSH 10ML SYR IVF SCH ×2 (09:46→22:07)
[2016-12-06 13:00] VITALS: BP 85/46
[2016-12-06 16:10] LABS: ASPARTATE AMINO TRANSFERASE 53 U/L (15-37); BLOOD UREA NITROGEN 36 mg/dL (7-18)
[2016-12-06 16:30] LABS: HEMATOCRIT 33.6 % (39.2-51.8); HEMOGLOBIN 11.3 g/dL (13.7-18.0)
[2016-12-06 19:55] VITALS: BP 88/51
[2016-12-07] MEDS: SULFACETAMIDE OPHTH 10%, 5ML EACHEYE SCH ×6 (00:59→20:36)
[2016-12-07 01:25] VITALS: BP 99/51
[2016-12-07 05:46] LABS: BLOOD UREA NITROGEN 37 mg/dL (7-18)
[2016-12-07 07:48] VITALS: BP 90/48
[2016-12-07] MEDS: POLYETHYLENE GLYCOL 17 GM PACKET PO SCH (08:57)
[2016-12-07] MEDS: CHLORHEXIDINE MOUTHWASH 15 ML UDC PO SCH (09:02)
[2016-12-07] MEDS: DOCUSATE 50 MG/5 ML, 10ML UDC NG SCH (09:02)
[2016-12-07] MEDS: DIAPER RASH/ZINC OXIDE PASTE 40%, 56GM TP SCH (09:02)
[2016-12-07] MEDS: SODIUM CHLORIDE FLUSH 10ML SYR IVF SCH ×2 (09:04→20:37)
[2016-12-07] MEDS: ALBUMIN HUMAN 25% 100 ML IV SCH (09:04)
[2016-12-07] MEDS: FUROSEMIDE 40 MG TABLET PO SCH (09:32)
[2016-12-07 13:50] VITALS: BP 94/56
[2016-12-07 19:40] VITALS: BP 90/57
[2016-12-08] MEDS: SULFACETAMIDE OPHTH 10%, 5ML EACHEYE SCH ×6 (01:00→20:21)
[2016-12-08 02:21] VITALS: BP 96/60
[2016-12-08 06:55] LABS: BLOOD UREA NITROGEN 38 mg/dL (7-18)
[2016-12-08] MEDS: ALBUMIN HUMAN 25% 100 ML IV SCH (10:26)
[2016-12-08] MEDS: POLYETHYLENE GLYCOL 17 GM PACKET PO SCH (10:26)
[2016-12-08] MEDS: SODIUM CHLORIDE FLUSH 10ML SYR IVF SCH ×2 (10:26→20:20)
[2016-12-08] MEDS: CHLORHEXIDINE MOUTHWASH 15 ML UDC PO SCH (10:26)
[2016-12-08] MEDS: FUROSEMIDE 40 MG TABLET PO SCH (14:49)
[2016-12-08] MEDS: DIAPER RASH/ZINC OXIDE PASTE 40%, 56GM TP SCH (14:49)
[2016-12-08] MEDS: DOCUSATE 50 MG/5 ML, 10ML UDC NG SCH (14:49)
[2016-12-08] MEDS: DEXTROSE 5% 1,000 ML IV SCH (14:52)
[2016-12-08 15:38] VITALS: BP 92/61
[2016-12-08 19:45] VITALS: BP 93/66
[2016-12-09] MEDS: SULFACETAMIDE OPHTH 10%, 5ML EACHEYE SCH ×6 (00:27→21:00)
[2016-12-09 01:20] VITALS: BP 91/52
[2016-12-09 06:12] VITALS: BP 91/62
[2016-12-09 06:12] LABS: BLOOD UREA NITROGEN 32 mg/dL (7-18)
[2016-12-09] MEDS: DEXTROSE 5% 1,000 ML IV SCH (10:58)
[2016-12-09] MEDS: ALBUMIN HUMAN 25% 100 ML IV SCH (10:58)
[2016-12-09] MEDS: FUROSEMIDE 40 MG TABLET PO SCH (14:01)
[2016-12-09] MEDS: DOCUSATE 50 MG/5 ML, 10ML UDC NG SCH (14:02)
[2016-12-09] MEDS: DIAPER RASH/ZINC OXIDE PASTE 40%, 56GM TP SCH (14:02)
[2016-12-09] MEDS: POLYETHYLENE GLYCOL 17 GM PACKET PO SCH (14:02)
[2016-12-09] MEDS: SODIUM CHLORIDE FLUSH 10ML SYR IVF SCH ×2 (14:02→21:00)
[2016-12-09] MEDS: CHLORHEXIDINE MOUTHWASH 15 ML UDC PO SCH (14:02)
[2016-12-09] MEDS ORDERED: FUROSEMIDE 40 MG TABLET PO ONE (16:30)
[2016-12-09] MEDS ORDERED: POTASSIUM CHLORIDE 20 MEQ TAB.ER.PRT PO ONE (17:00)
[2016-12-09 19:45] VITALS: BP 108/73
[2016-12-10] MEDS: SULFACETAMIDE OPHTH 10%, 5ML EACHEYE SCH ×6 (00:51→21:00)
[2016-12-10 01:09] VITALS: BP 85/65
[2016-12-10 05:48] LABS: BLOOD UREA NITROGEN 30 mg/dL (7-18)
[2016-12-10 08:00] VITALS: BP 93/63
[2016-12-10] MEDS: DOCUSATE 50 MG/5 ML, 10ML UDC NG SCH (09:15)
[2016-12-10] MEDS: POTASSIUM CHLORIDE 20 MEQ TAB.ER.PRT PO SCH ×3 (09:15→20:42)
[2016-12-10] MEDS: CHLORHEXIDINE MOUTHWASH 15 ML UDC PO SCH (09:15)
[2016-12-10] MEDS: DIAPER RASH/ZINC OXIDE PASTE 40%, 56GM TP SCH (09:15)
[2016-12-10] MEDS: ALBUMIN HUMAN 25% 100 ML IV SCH (09:15)
[2016-12-10] MEDS: SODIUM CHLORIDE FLUSH 10ML SYR IVF SCH ×2 (09:16→20:41)
[2016-12-10] MEDS: POLYETHYLENE GLYCOL 17 GM PACKET PO SCH (09:16)
[2016-12-10] MEDS: FUROSEMIDE 80 MG TABLET PO SCH (11:37)
[2016-12-10 13:50] VITALS: BP 120/87
[2016-12-10] MEDS ORDERED: POTASSIUM CHLORIDE 10 MEQ TABLET.ER ONE (17:45)
[2016-12-10 20:29] VITALS: BP 101/67
[2016-12-11 01:00] VITALS: BP 100/62
[2016-12-11] MEDS: SULFACETAMIDE OPHTH 10%, 5ML EACHEYE SCH ×6 (01:32→20:46)
[2016-12-11 06:06] VITALS: BP 109/58
[2016-12-11 06:23] LABS: BLOOD UREA NITROGEN 30 mg/dL (7-18)
[2016-12-11] MEDS: POTASSIUM CHLORIDE 20 MEQ TAB.ER.PRT PO SCH (09:00)
[2016-12-11] MEDS: SODIUM CHLORIDE FLUSH 10ML SYR IVF SCH ×2 (09:00→20:44)
[2016-12-11] MEDS: DIAPER RASH/ZINC OXIDE PASTE 40%, 56GM TP SCH (09:00)
[2016-12-11] MEDS: DOCUSATE 50 MG/5 ML, 10ML UDC NG SCH (09:00)
[2016-12-11] MEDS: POLYETHYLENE GLYCOL 17 GM PACKET PO SCH (09:18)
[2016-12-11] MEDS: ALBUMIN HUMAN 25% 100 ML IV SCH (09:21)
[2016-12-11] MEDS: CHLORHEXIDINE MOUTHWASH 15 ML UDC PO SCH (09:22)
[2016-12-11] MEDS: FUROSEMIDE 80 MG TABLET PO SCH (10:12)
[2016-12-11 14:30] VITALS: BP 103/92
[2016-12-11] MEDS ORDERED: BISACODYL 10 MG SUPP PR PRN ×2 (15:30)
[2016-12-11] MEDS ORDERED: ONDANSETRON 2MG/ML, 2ML IVPush PRN (15:30)
[2016-12-11] MEDS ORDERED: ACETAMINOPHEN 325 MG TABLET PO PRN ×2 (15:30)
[2016-12-11 20:23] VITALS: BP 106/64
[2016-12-11] MEDS ORDERED: SODIUM CHLORIDE FLUSH 10ML SYR IVF SCH (21:00)
[2016-12-12] MEDS: SULFACETAMIDE OPHTH 10%, 5ML EACHEYE SCH ×6 (02:03→20:07)
[2016-12-12 03:13] VITALS: BP 100/60
[2016-12-12 05:28] LABS: BLOOD UREA NITROGEN 33 mg/dL (7-18)
[2016-12-12 07:30] VITALS: BP 143/53
[2016-12-12] MEDS: ALBUMIN HUMAN 25% 100 ML IV SCH (08:32)
[2016-12-12] MEDS: DIAPER RASH/ZINC OXIDE PASTE 40%, 56GM TP SCH (10:19)
[2016-12-12] MEDS: POLYETHYLENE GLYCOL 17 GM PACKET PO SCH (10:20)
[2016-12-12] MEDS: POTASSIUM CHLORIDE 20 MEQ TAB.ER.PRT PO SCH (10:20)
[2016-12-12] MEDS: DOCUSATE 50 MG/5 ML, 10ML UDC NG SCH (10:20)
[2016-12-12] MEDS: FUROSEMIDE 80 MG TABLET PO SCH (10:20)
[2016-12-12] MEDS: CHLORHEXIDINE MOUTHWASH 15 ML UDC PO SCH (10:20)
[2016-12-12] MEDS: SODIUM CHLORIDE FLUSH 10ML SYR IVF SCH ×2 (10:21→20:08)
[2016-12-12] MEDS ORDERED: POLY17PO5 PO (10:35)
[2016-12-12] MEDS ORDERED: ASPI-650 PO (10:37)
[2016-12-12 19:39] VITALS: BP 100/62
[2016-12-13 00:59] VITALS: BP 112/67
[2016-12-13] MEDS: SULFACETAMIDE OPHTH 10%, 5ML EACHEYE SCH ×3 (02:18→09:26)
[2016-12-13 08:54] VITALS: BP 104/55
[2016-12-13] MEDS: POLYETHYLENE GLYCOL 17 GM PACKET PO SCH (09:00)
[2016-12-13] MEDS: SODIUM CHLORIDE FLUSH 10ML SYR IVF SCH (09:00)
[2016-12-13] MEDS: DIAPER RASH/ZINC OXIDE PASTE 40%, 56GM TP SCH (09:27)
[2016-12-13] MEDS: ALBUMIN HUMAN 25% 100 ML IV SCH (09:27)
[2016-12-13] MEDS: POTASSIUM CHLORIDE 20 MEQ TAB.ER.PRT PO SCH (09:27)
[2016-12-13] MEDS: CHLORHEXIDINE MOUTHWASH 15 ML UDC PO SCH (09:27)
[2016-12-13] MEDS: DOCUSATE 50 MG/5 ML, 10ML UDC NG SCH (09:27)
[2016-12-13] MEDS: FUROSEMIDE 80 MG TABLET PO SCH (09:27)
== END 2016-12-13 11:58 | disposition home or self-care (01) | DRG 199 ==
LOC: ED 18:27 → SUATTDRO 19:15 → EDIP 19:20 → 5SO 20:39 → CCU 11-14 03:30 → 4WST 11-16 16:59 → 3NE 12-03 18:34
PROVIDERS: ADMIT Family Medicine; ATTEND Hospitalist
PROC: 0T9B70Z Drainage of Bladder with Drainage Device, Via Natural or Artificial Opening (ICD-10-PCS; 2016-11-14)
PROC: 5A09357 Assistance with Respiratory Ventilation, Less than 24 Consecutive Hours, Continuous Positive Airway Pressure (ICD-10-PCS; 2016-11-14)
PROC: 0W9B3ZZ Drainage of Left Pleural Cavity, Percutaneous Approach (ICD-10-PCS; 2016-11-14)
PROC: 0W9B30Z Drainage of Left Pleural Cavity with Drainage Device, Percutaneous Approach (ICD-10-PCS; principal; 2016-11-15)
DX: J95.811 Postprocedural pneumothorax (principal); J96.00 Acute respiratory failure, unspecified whether with hypoxia or hypercapnia; E43 Unspecified severe protein-calorie malnutrition; I50.43 Acute on chronic combined systolic (congestive) and diastolic (congestive) heart failure; E87.0 Hyperosmolality and hypernatremia; D69.6 Thrombocytopenia, unspecified; I27.2 Other secondary pulmonary hypertension; E87.3 Alkalosis; R47.01 Aphasia; N39.0 Urinary tract infection, site not specified; J98.11 Atelectasis; I11.0 Hypertensive heart disease with heart failure; R13.10 Dysphagia, unspecified; L89.619 Pressure ulcer of right heel, unspecified stage; I49.5 Sick sinus syndrome; I48.91 Unspecified atrial fibrillation; G80.9 Cerebral palsy, unspecified; B96.89 Other specified bacterial agents as the cause of diseases classified elsewhere; E87.6 Hypokalemia; Z68.22 Body mass index [BMI] 22.0-22.9, adult; F79 Unspecified intellectual disabilities; I08.3 Combined rheumatic disorders of mitral, aortic and tricuspid valves; Z53.20 Procedure and treatment not carried out because of patient's decision for unspecified reasons; Z66 Do not resuscitate; Z95.0 Presence of cardiac pacemaker; Z95.2 Presence of prosthetic heart valve
CPT/HCPCS: 32551; 32555; 32557; 36415; 36600; 71010; 74230; 76705; 80048; 80053; 81001; 82040; 82150; 82306; 82607; 82803; 82945; 83605; 83615; 83735; 83880; 83986; 84100; 84132; 84155; 84157; 84439; 84443; 84484; 85025; 87040; 87070; 87077; 87081; 87086; 87186; 87205; 89051; 93005; 94640; 94660; 96374; J0696; J1650; J1940; J2250; J3010; J3480; J3490; J7070; J7620; P9047; 92523-GN; C1729; C1769; C9113; J1120; J2270; J3475; J7040; J7050; J7060; S0028

== ENCOUNTER 2017-04-20 18:40 | Inpatient (IN) | payer MEDICARE, MEDICAID ==
[~2017-04-20] VITALS: Ht 167.6 cm; Wt 58.0 kg
[~2017-04-20 18:40] MED LIST changes: +ASPI-650 PO; +CEFD300C37 PO; +COD28PAS TP; +FURO40TA6 PO; +POLY17PO5 PO; +POTA10CA PO
[2017-04-20 19:50] LABS: MD YES; MEAN CORPUSCULAR HEMOGLOBIN 36.1 pg (27.5-34.5); MEAN CORPUSCULAR HGB CONC 32.1 g/dL (33.2-36.2); MEAN CORPUSCULAR VOLUME 112.2 fL (81-97); MEAN PLATELET VOLUME 9.1 fL (7.4-10.4); PLATELET COUNT 64 x10^3/uL (130-400); RED BLOOD COUNT 3.13 x10^6/uL (4.38-5.82); RED CELL DISTRIBUTION WIDTH 22.6 % (9.4-14.8)
[2017-04-20 19:53] LABS: ALBUMIN 2.1 g/dL (3.4-5.0); CALCIUM 9.1 mg/dL (8.5-10.1); CREATININE 1.48 mg/dL (0.7-1.3)
[2017-04-20 20:04] LABS: MICROSCOPIC NOT IND
[2017-04-20 20:07] LABS: CULTURE INDICATED? NO
[2017-04-20 20:15] LABS: ANION GAP 1 mmol/L (5-15); CHLORIDE 121 mmol/L (98-107)
[2017-04-20 20:29] LABS: BASOS#(MANUAL) 0.05 x10^3/uL (0-0.1); BASOS% (MANUAL) 1 % (0-1); EOS#(MANUAL) 0.25 x10^3/uL (0.0-0.4); EOS% (MANUAL) 5 % (1-7); LYMPH#(MANUAL) 0.25 x10^3/uL (1-3.4); LYMPHS% (MANUAL) 5 % (22-44); MONOS% (MANUAL) 8 % (2-9); SEG#(MANUAL) 4.05 x10^3/uL (1.8-6.8); SEGS% (MANUAL) 81 % (42-75)
[2017-04-20 20:31] LABS: OVALOCYTES 1+; POLYCHROMASIA 1+
[2017-04-20 20:32] LABS: SPHEROCYTES 1+
[2017-04-20 20:33] LABS: <PLATELET ESTIMATE> DECREASED; <PLT MORPHOLOGY> NORMAL PLT MORPH
[2017-04-20] MEDS ORDERED: SODIUM CHLORIDE 0.45% 1,000 ML IV SCH (21:00)
[2017-04-20] MEDS ORDERED: SODIUM CHLORIDE 0.45%, 1,000ML IVBOLUS ONE (21:00)
[2017-04-20] MEDS ORDERED: PLEASE ENTER HEIGHT AND WEIGHT MC SCH (21:14)
[2017-04-20] MEDS ORDERED: GLUCOSAMINE PO SCH (21:30)
[2017-04-20] MEDS ORDERED: ACETAMINOPHEN 325 MG TABLET PO PRN (21:30)
[2017-04-20] MEDS ORDERED: DEXTROSE 5% 1,000 ML IV SCH (21:30)
[2017-04-20] MEDS ORDERED: ONDANSETRON 2MG/ML, 2ML IVPush PRN (21:30)
[2017-04-20] MEDS ORDERED: CHONDROITIN PO SCH (21:30)
[2017-04-20 22:16] LABS: FOLATE LEVEL 9.5 ng/mL (3.1-17.5)
[2017-04-20] MEDS ORDERED: PLEASE ENTER HEIGHT MC SCH (22:30)
[2017-04-20] MEDS: HEPARIN 5,000 UNITS/ML, 1ML SQ SCH (23:12)
[2017-04-20 23:17] VITALS: BP 100/67
[2017-04-21 03:14] VITALS: BP 95/58
[2017-04-21 03:21] LABS: MEAN CORPUSCULAR HEMOGLOBIN 35.4 pg (27.5-34.5); MEAN CORPUSCULAR HGB CONC 31.8 g/dL (33.2-36.2); MEAN CORPUSCULAR VOLUME 111.5 fL (81-97); RED BLOOD COUNT 3.14 x10^6/uL (4.38-5.82); RED CELL DISTRIBUTION WIDTH 22.6 % (9.4-14.8)
[2017-04-21 03:54] LABS: BASOPHILS % (AUTO) 0 % (0-1); EOSINOPHILS # (AUTO) 0.13 x10^3/uL (0-0.4); EOSINOPHILS % (AUTO) 3 % (1-7); LYMPHOCYTES # (AUTO) 0.24 x10^3/uL (1-3.4); LYMPHOCYTES % (AUTO) 6 % (22-44); MD SCAN; MEAN PLATELET VOLUME 9.3 fL (7.4-10.4); MONOCYTES % (AUTO) 8 % (2-9); NEUTROPHILS # (AUTO) 3.36 x10^3/uL (1.8-6.8); NEUTROPHILS % (AUTO) 83 % (42-75); PLATELET COUNT 63 x10^3/uL (130-400)
[2017-04-21 07:10] VITALS: BP 74/46
[2017-04-21 07:51] LABS: ALANINE AMINOTRANSFERASE 23 U/L (12-78); ALBUMIN 1.8 g/dL (3.4-5.0); ANION GAP 4 mmol/L (5-15); CALCIUM 8.1 mg/dL (8.5-10.1); CHLORIDE 115 mmol/L (98-107); CREATININE 1.32 mg/dL (0.7-1.3)
[2017-04-21 07:53] LABS: ALKALINE PHOSPHATASE 157 U/L (45-117); BILIRUBIN,TOTAL 1.3 mg/dL (0.2-1.0); TOTAL PROTEIN 5.9 g/dL (6.4-8.2)
[2017-04-21] MEDS ORDERED: SODIUM CHLORIDE 0.9%, 250ML IVBOLUS ONE (08:00)
[2017-04-21 08:45] VITALS: BP 86/53
[2017-04-21] MEDS ORDERED: POTASSIUM CHLORIDE 20 MEQ TAB.ER.PRT PO SCH (09:00)
[2017-04-21] MEDS: POLYETHYLENE GLYCOL 17 GM PACKET PO SCH (09:00)
[2017-04-21] MEDS: CHONDROITIN PO SCH ×2 (09:00→21:00)
[2017-04-21] MEDS: GLUCOSAMINE PO SCH ×2 (09:00→21:00)
[2017-04-21] MEDS: CHLORHEXIDINE MOUTHWASH 15 ML UDC MM SCH (09:00)
[2017-04-21] MEDS: DIAPER RASH/ZINC OXIDE PASTE 40%, 56GM TP SCH (09:00)
[2017-04-21] MEDS: HEPARIN 5,000 UNITS/ML, 1ML SQ SCH (09:32)
[2017-04-21] MEDS: D5%-0.45NACL+KCL 20MEQ 1,000 ML IV SCH ×2 (09:52→23:21)
[2017-04-21] MEDS: ASPIRIN 325 MG TABLET EC PO SCH (12:39)
[2017-04-21] MEDS: DOCUSATE 100 MG CAPSULE PO SCH (12:39)
[2017-04-21] MEDS: FAMOTIDINE 20 MG TABLET PO SCH (12:40)
[2017-04-21] MEDS: MULTIVITAMIN 1 TABLET PO SCH (12:40)
[2017-04-21] MEDS: CYANOCOBALAMIN 1,000 MCG TABLET PO SCH (12:40)
[2017-04-21] MEDS ORDERED: POTASSIUM CHLORIDE 10% 20 MEQ/15 ML UDC PO SCH (13:00)
[2017-04-21 14:10] VITALS: BP 91/51
[2017-04-21 18:56] VITALS: BP 100/61
[2017-04-22 01:05] VITALS: BP 107/69
[2017-04-22 05:19] LABS: CHLORIDE 114 mmol/L (98-107)
[2017-04-22 05:25] LABS: ANION GAP 4 mmol/L (5-15); CALCIUM 8.2 mg/dL (8.5-10.1); CREATININE 1.24 mg/dL (0.7-1.3)
[2017-04-22 05:51] LABS: BASOPHILS # (AUTO) 0.01 x10^3/uL (0-0.1); BASOPHILS % (AUTO) 0 % (0-1); EOSINOPHILS # (AUTO) 0.09 x10^3/uL (0-0.4); EOSINOPHILS % (AUTO) 2 % (1-7); LYMPHOCYTES # (AUTO) 0.27 x10^3/uL (1-3.4); LYMPHOCYTES % (AUTO) 5 % (22-44); MD SCAN; MEAN CORPUSCULAR HEMOGLOBIN 36.2 pg (27.5-34.5); MEAN CORPUSCULAR HGB CONC 32.5 g/dL (33.2-36.2); MEAN CORPUSCULAR VOLUME 111.2 fL (81-97); MONOCYTES # (AUTO) 0.47 x10^3/uL (0.2-0.8); MONOCYTES % (AUTO) 9 % (2-9); NEUTROPHILS # (AUTO) 4.18 x10^3/uL (1.8-6.8); NEUTROPHILS % (AUTO) 83 % (42-75); PLATELET COUNT 51 x10^3/uL (130-400); RED CELL DISTRIBUTION WIDTH 21.7 % (9.4-14.8)
[2017-04-22 08:01] VITALS: BP 97/59
[2017-04-22] MEDS ORDERED: D5%-0.45% NACL 1,000 ML IV SCH (08:30)
[2017-04-22] MEDS: ASPIRIN 325 MG TABLET EC PO SCH (09:00)
[2017-04-22] MEDS: GLUCOSAMINE PO SCH ×2 (09:00→20:43)
[2017-04-22] MEDS: CHLORHEXIDINE MOUTHWASH 15 ML UDC MM SCH (09:00)
[2017-04-22] MEDS: CHONDROITIN PO SCH ×2 (09:00→20:43)
[2017-04-22] MEDS: DOCUSATE 100 MG CAPSULE PO SCH (09:37)
[2017-04-22] MEDS: POLYETHYLENE GLYCOL 17 GM PACKET PO SCH (09:37)
[2017-04-22] MEDS: POTASSIUM CHLORIDE 10% 20 MEQ/15 ML UDC PO SCH (09:38)
[2017-04-22] MEDS: FAMOTIDINE 20 MG TABLET PO SCH (09:38)
[2017-04-22] MEDS: DIAPER RASH/ZINC OXIDE PASTE 40%, 56GM TP SCH (09:38)
[2017-04-22] MEDS: MULTIVITAMIN 1 TABLET PO SCH (09:38)
[2017-04-22] MEDS: CYANOCOBALAMIN 1,000 MCG TABLET PO SCH (09:38)
[2017-04-22 12:35] VITALS: BP 116/67
[2017-04-22 16:09] LABS: ANION GAP 0 mmol/L (5-15); CALCIUM 8.5 mg/dL (8.5-10.1); CHLORIDE 115 mmol/L (98-107)
[2017-04-22] MEDS ORDERED: DEXTROSE 5% 1,000 ML IV SCH (17:00)
[2017-04-22 18:19] VITALS: BP 95/65
[2017-04-23 01:22] VITALS: BP 93/62
[2017-04-23 06:45] VITALS: BP 132/81
[2017-04-23] MEDS: DOCUSATE 100 MG CAPSULE PO SCH (09:00)
[2017-04-23] MEDS: FAMOTIDINE 20 MG TABLET PO SCH (09:00)
[2017-04-23] MEDS: ASPIRIN 325 MG TABLET EC PO SCH (09:00)
[2017-04-23] MEDS: DIAPER RASH/ZINC OXIDE PASTE 40%, 56GM TP SCH (09:00)
[2017-04-23] MEDS: POLYETHYLENE GLYCOL 17 GM PACKET PO SCH (09:00)
[2017-04-23] MEDS: CHONDROITIN PO SCH (09:00)
[2017-04-23] MEDS: CHLORHEXIDINE MOUTHWASH 15 ML UDC MM SCH (09:00)
[2017-04-23] MEDS: GLUCOSAMINE PO SCH (09:00)
[2017-04-23] MEDS: CYANOCOBALAMIN 1,000 MCG TABLET PO SCH (09:00)
[2017-04-23] MEDS: POTASSIUM CHLORIDE 10% 20 MEQ/15 ML UDC PO SCH (09:00)
[2017-04-23] MEDS: MULTIVITAMIN 1 TABLET PO SCH (09:00)
[2017-04-23 12:35] VITALS: BP 105/68
[2017-04-23] MEDS ORDERED: DEXTROSE 5% 1,000 ML IV SCH ×2 (17:00)
[2017-04-23 21:55] VITALS: BP 119/74
[2017-04-24 03:06] VITALS: BP 101/53
[2017-04-24 08:43] VITALS: BP 98/64
[2017-04-24] MEDS: DOCUSATE 100 MG CAPSULE PO SCH (08:51)
[2017-04-24] MEDS: POLYETHYLENE GLYCOL 17 GM PACKET PO SCH (08:51)
[2017-04-24] MEDS: ASPIRIN 325 MG TABLET EC PO SCH (08:51)
[2017-04-24] MEDS: CHLORHEXIDINE MOUTHWASH 15 ML UDC MM SCH (08:51)
[2017-04-24] MEDS: DIAPER RASH/ZINC OXIDE PASTE 40%, 56GM TP SCH (12:14)
== END 2017-04-24 13:43 | disposition hospice, home (50) | DRG 682 ==
LOC: ED 21:34 → EDIP 21:45 → 4EST 22:21
PROVIDERS: ADMIT Surgery; ATTEND Internal Medicine
PROC: 0T9B70Z Drainage of Bladder with Drainage Device, Via Natural or Artificial Opening (ICD-10-PCS; principal; 2017-04-20)
DX: N17.0 Acute kidney failure with tubular necrosis (principal); E43 Unspecified severe protein-calorie malnutrition; E87.3 Alkalosis; D68.69 Other thrombophilia; D69.6 Thrombocytopenia, unspecified; E87.0 Hyperosmolality and hypernatremia; I27.20 Pulmonary hypertension, unspecified; I07.1 Rheumatic tricuspid insufficiency; I50.32 Chronic diastolic (congestive) heart failure; I11.0 Hypertensive heart disease with heart failure; I48.2 Chronic atrial fibrillation; G80.9 Cerebral palsy, unspecified; R33.8 Other retention of urine; D53.9 Nutritional anemia, unspecified; E86.0 Dehydration; K21.9 Gastro-esophageal reflux disease without esophagitis; N40.1 Benign prostatic hyperplasia with lower urinary tract symptoms; R62.7 Adult failure to thrive; K59.00 Constipation, unspecified; Z51.5 Encounter for palliative care; Z66 Do not resuscitate; Z79.82 Long term (current) use of aspirin; Z95.0 Presence of cardiac pacemaker; Z95.2 Presence of prosthetic heart valve; Z68.20 Body mass index [BMI] 20.0-20.9, adult
CPT/HCPCS: 36415; 51702; 71010; 80048; 80053; 81003; 82040; 82607; 82746; 83735; 83930; 83935; 84100; 84295; 85025; 93005; 96360; J1644; J7070; J3480; J7050